=== PATIENT | female | born 1995 | race Two or more races ===

== ENCOUNTER 2024-11-01 00:36 | Outpatient (CLI) | payer OTHER ==
[~2024-11-01] VITALS: Ht 162.6 cm; Wt 156.5 kg
[2024-11-01 00:50] VITALS: BP 134/62; O2SAT 98
[2024-11-01] MEDS ORDERED: HUMU500S SC (01:14)
[2024-11-01] MEDS ORDERED: INSUN SC (01:14)
[2024-11-01] MEDS ORDERED: DEXTROSE 50% 50 ML SYRINGE IV PRN ×2 (01:35→02:55)
[2024-11-01] MEDS ORDERED: GLUCOSE 4 GM CHEW PO PRN ×2 (01:35→02:55)
[2024-11-01] MEDS ORDERED: GLUCAGON INJ 1 MG VIAL SC PRN ×2 (01:35→02:55)
[2024-11-01] MEDS: NS (Normal Saline) 0.9% 1,000 ML IV SCH (02:12)
[2024-11-01 02:43] LABS: BASO # 0.0 10^3/uL (0.0-0.2); BASO % 0.3 % (0.0-1.0); EOS # 0.1 10^3/uL (0.0-0.5); EOS % 0.9 % (0.0-3.0); LYMPH # 2.1 10^3/uL (1.5-5.0); LYMPH % 17.5 % (24.0-44.0); MONO # 1.2 10^3/uL (0.0-0.8); MONO % 9.8 % (2.0-8.0); NEUTROPHILS # 8.1 10^3/uL (1.5-8.5); NEUTROPHILS % 69.0 % (36.0-66.0); PLATELET COUNT, AUTOMATED 193 10^3/uL (150-450)
[2024-11-01 02:57] VITALS: BP 141/83
[2024-11-01 03:13] LABS: ALT/SGPT 23 U/L (7.0-40); AST/SGOT 20 U/L (<34); CALCIUM LEVEL 8.2 MG/DL (8.5-10.1); CARBON DIOXIDE LEVEL 23 MMOL/L (20-31); CHLORIDE LEVEL 105 MMOL/L (98-107); CREATININE FOR GFR 0.58 MG/DL (0.55-1.30); GLOMERULAR FILTRATION RATE > 90.0 (>60); POTASSIUM SERUM 3.8 MMOL/L (3.5-5.1); SODIUM LEVEL 139 MMOL/L (136-145)
[2024-11-01] MEDS: INSULIN LISPRO (NovoLOG) PER UNIT SC ONE (03:28)
[2024-11-01 04:18] LABS: KETONE, URINE AUTO RFX TRACE mg/dL (NEGATIVE); LEUKOCYTE ESTERASE UR AUTO RFX NEGATIVE (NEGATIVE); MUCUS, URINE RFX SMALL (NEGATIVE); NITRITE, URINE AUTO RFX NEGATIVE (NEGATIVE); RBC, URINE AUTO RFX 0 /HPF (0-3); SQUAM EPITHELIAL CELL UR AURFX 8 /HPF (0-6); WBC, URINE AUTO RFX 0 /HPF (0-3)
[2024-11-01 05:31] VITALS: BP 128/56
[2024-11-01 05:41] LABS: GC DNA AMPLIFICATION NEGATIVE (NEGATIVE)
[2024-11-01] MEDS: HumuLIN N INSULIN (NovoLIN N) PER UNIT SC ONE (07:29)
[2024-11-01] MEDS: INSULIN LISPRO (NovoLOG) PER UNIT SC SCH (08:30)
[2024-11-01] MEDS ORDERED: INSULIN LISPRO (NovoLOG) PER UNIT SC SCH (21:00)
== END 2024-11-01 08:40 | disposition home or self-care (01) ==
LOC: M LDO 00:36
PROVIDERS: ATTEND Obstetrics & Gynecology
DX: O26.893 Other specified pregnancy related conditions, third trimester (principal); Z3A.28 28 weeks gestation of pregnancy; O34.219 Maternal care for unspecified type scar from previous cesarean delivery; O24.113 Pre-existing type 2 diabetes mellitus, in pregnancy, third trimester; Z79.4 Long term (current) use of insulin; O99.283 Endocrine, nutritional and metabolic diseases complicating pregnancy, third trimester; E86.0 Dehydration; O40.3XX0 Polyhydramnios, third trimester, not applicable or unspecified; O99.213 Obesity complicating pregnancy, third trimester; E66.9 Obesity, unspecified
CPT/HCPCS: 36415; 59025; 76811; 76815; 76819; 76820; 80053; 81001; 82731; 85025; 87081; 87810; 87850; G0463; J1815

== ENCOUNTER 2024-12-04 02:10 | Outpatient (CLI) | payer OTHER ==
[~2024-12-04] VITALS: Ht 162.6 cm; Wt 158.0 kg
[~2024-12-04 02:10] MED LIST: HUMU500S SC; INSUN SC
[2024-12-04] MEDS ORDERED: HUMU1INJ2 (02:23)
[2024-12-04] MEDS ORDERED: ASPI81TA26 (02:23)
[2024-12-04 02:28] VITALS: BP 124/60
[2024-12-04 03:19] LABS: AMORPHOUS SEDIMENT SMALL (NEGATIVE); APPEARANCE, URINE HAZY (CLEAR); BACTERIA, URINE AUTO NEGATIVE (NEGATIVE); BILIRUBIN, URINE AUTO NEGATIVE (NEGATIVE); BLOOD, URINE BLOOD NEGATIVE (NEGATIVE); GLUCOSE, URINE (UA) AUTO 3+ mg/dL (NEGATIVE); KETONE, URINE AUTO 1+ mg/dL (NEGATIVE); LEUKOCYTE ESTERASE, URINE AUTO NEGATIVE (NEGATIVE); MUCUS, URINE SMALL (NEGATIVE); NITRITE, URINE AUTO NEGATIVE (NEGATIVE); PROTEIN, URINE AUTO 2+ mg/dL (NEGATIVE); RBC, URINE AUTO 2 /HPF (0-3); SPECIFIC GRAVITY URINE AUTO 1.035 (1.002-1.035); SQUAMOUS EPITHELIAL CELL UR AU 4 /HPF (0-6); UROBILINOGEN, URINE AUTO 2.0 mg/dL (0.0-2.0); WBC, URINE AUTO 1 /HPF (0-3)
== END 2024-12-04 05:20 | disposition home or self-care (01) ==
LOC: M LDO 02:10
PROVIDERS: ATTEND Obstetrics & Gynecology
DX: O26.893 Other specified pregnancy related conditions, third trimester (principal); O24.113 Pre-existing type 2 diabetes mellitus, in pregnancy, third trimester; O99.213 Obesity complicating pregnancy, third trimester; R10.2 Pelvic and perineal pain; E66.01 Morbid (severe) obesity due to excess calories; Z3A.33 33 weeks gestation of pregnancy
CPT/HCPCS: 59025; 81001; G0463